=== PATIENT | female | born 1975 | race Caucasian/White ===

== ENCOUNTER → 2018-05-02 | Outpatient (CLI) | payer OTHER ==
[~2018-05-02] MED LIST: CONTRAST GIVEN. MC
[2018-05-02] MEDS: IOHEXOL 300 MG/ML 100ML VIAL. IV (15:15)
== END | disposition home or self-care (01) ==
LOC: CT 14:51
DX: R07.9 Chest pain, unspecified (principal); Z86.711 Personal history of pulmonary embolism
CPT/HCPCS: 71275; Q9967

== ENCOUNTER → 2018-09-19 | Outpatient (CLI) | payer OTHER ==
[2016-09-23 22:07] VITALS: BP 124/80
[~2018-09-19] MED LIST changes: +ACET325T9 PO; +BUSP5TAB PO; +CETI10TA22 PO; +CHOL2000 PO; -CONTRAST GIVEN. MC; +FAMO40TA4 PO; +OXYC-323 PO; +SERT100T8 PO; +SUCR1ORA5 PO; +WARF-31 PO; +WARF10TA45 PO
--- NOTE | 2018-09-19 09:22 | RAD ---
ABDOMEN LTD History: Right upper quadrant pain Comparison: None. Findings: Multiple sonographic images of the abdomen are submitted. There is suboptimal visualization of pancreas due to bowel gas, no obvious abnormality in this region. Abdominal aortic aorta is also poorly visualized due to bowel gas, not convincingly dilated up to about 1.9 cm. There is segmental visualization of the inferior vena cava. There is mild coarsening of the echotexture of the liver. Right lobe of the liver measured 16.2 cm longitudinal. Common bile duct is within normal limits at 0.3 cm. There is echogenic shadowing focus in the gallbladder lumen near the gallbladder neck, no change in position with patient repositioning. There is no demonstrable pericholecystic fluid or gallbladder wall thickening. Right kidney measured 10.5 x 4 x 5.1 cm, no hydronephrosis. Impression: 1. There is a gallstone near the gallbladder neck, no change in position with patient repositioning. 2. There may be mild hepatic steatosis. Electronically signed by: Geremias Flores MD (09/19/2018 9:18 AM) [email or web address]
== END | disposition home or self-care (01) ==
LOC: US 08:03
PROVIDERS: ATTEND Nurse Practitioner Family
DX: K80.80 Other cholelithiasis without obstruction (principal)
CPT/HCPCS: 76705

== ENCOUNTER 2018-09-27 06:51 | Day surgery (SDC) | payer OTHER ==
[~2018-09-27] VITALS: Ht 157.5 cm; Wt 86.0 kg
[~2018-09-27 06:51] MED LIST changes: +BUPIVAC MPF-EPI 0.5%-1:200000 30 ML VIAL. ONE; +IOHEXOL 300 MG/ML 100ML VIAL. ONE; -OXYC-323 PO; +SURGICEL HEMOSTAT 4X8 EACH. ONE
[2018-09-27] MEDS ORDERED: fentaNYL PF VIAL 100 MCG/2 ML VIAL IV PRN (07:00)
[2018-09-27] MEDS ORDERED: PROCHLORPERAZINE 10 MG/2 ML VIAL. IV PRN (07:00)
[2018-09-27] MEDS ORDERED: MORPHINE SULFATE 2 MG/ML VIAL. IV PRN (07:00)
[2018-09-27] MEDS ORDERED: HYDROmorphone 2 MG/ML VIAL IV PRN (07:00)
[2018-09-27] MEDS ORDERED: ONDANSETRON PF 4 MG/2 ML VIAL. IV PRN (07:00)
[2018-09-27] MEDS ORDERED: LIDOCAINE 1% PF 2 ML VIAL. ID PRN (07:00)
[2018-09-27] MEDS ORDERED: IV RINGERS,LACTATED 1000ML 1,000 ML IV SCH (07:00)
[2018-09-27] MEDS ORDERED: NEOSTIGMINE METHYLSULFATE 5 MG/5 ML SYRINGE. ONE (08:01)
[2018-09-27] MEDS ORDERED: fentaNYL PF VIAL 100 MCG/2 ML VIAL ONE ×4 (08:01→10:50)
[2018-09-27] MEDS ORDERED: GLYCOPYRROLATE 1 MG/5 ML VIAL. ONE (08:02)
[2018-09-27] MEDS ORDERED: ONDANSETRON PF 4 MG/2 ML VIAL. ONE (08:02)
[2018-09-27] MEDS ORDERED: PROPOFOL 20 ML IV ONE (08:02)
[2018-09-27] MEDS ORDERED: DEXAMETHASONE SOD PHOS 20 MG/5 ML VIAL. ONE (08:02)
[2018-09-27] MEDS ORDERED: MIDAZOLAM HCL/PF 2 MG/2 ML VIAL. ONE (08:02)
[2018-09-27] MEDS ORDERED: KETOROLAC 30 MG/ML INJ FOR OR. INJ ONE (08:02)
[2018-09-27] MEDS ORDERED: ROCURONIUM 50 MG/5 ML VIAL. ONE (08:03)
[2018-09-27 08:23] LABS: PROTHROMBIN TIME PATIENT 22.2 SEC (11.7-14.0)
[2018-09-27 08:33] LABS: U PREG PATIENT NEGATIVE (NEG)
[2018-09-27] MEDS ORDERED: BUPIVAC MPF-EPI 0.5%-1:200000 30 ML VIAL. INJ ONE (09:25)
--- NOTE | 2018-09-27 09:57 | PDOC4 ---
Operative Note Operative Note Date: 09/27/2018 Preoperative diagnosis: Chronic cholecystitis Postoperative diagnosis: Same Procedure: Laparoscopic cholecystectomy Surgeon: Uche Specimen: Gallbladder Dictation: Patient is a 42-year-old female who's had right upper quadrant abdominal pain ultrasound showing small gallstones seizure of laparoscopic cholecystectomy was explained to the patient detail was benefits were also discussed including bleeding infection injury to intra-abdominal contents possibly necessitating further or open operations alternatives to this procedure also discussed with patient seemed understanding gave both verbal and written consent had procedure performed. Patient was taken to the operating room placed in supine position general anesthesia was initiated once patient was asleep and intubated her abdomen was prepped and draped usual sterile fashion using ChloraPrep and area just below the umbilicus injected quarter percent Marcaine with epinephrine incisions made lead blade scalpel varies needle was placed within the abdomen creating pneumoperitoneum once this was complete a 11 mm port was placed and a 5 mm camera was placed within the abdomen abdomen was inspected no other abnormalities were noted. A 5 mm port was placed in the epigastrium and 2 more 5 mm ports were placed in the right upper quadrant the dome of the gallbladder's grasped retracted cephalad the infundibulum of the gallbladder's grasped tract laterally exposing the triangle adherent tissues the triangle are taken down exposing the cystic duct and cystic artery both were doubly clipped and transected the gallbladder was taken off the liver with hook electrocautery placed within an Endo Catch bag and removed from the umbilicus right upper quadrant was irrigated and suctioned dry hemostasis deemed to be appropriate and the pneumoperitoneum was reduced all ports removed the fascial defect at the umbilicus closed [id number] 0 Vicryl suture and the skin was approximated all port sites 4 septic Monocryl Mastisol Steri-Strips and island dressings were applied. Patient was waken expanded in the operating room taken recovery in stable condition all sponge instrument needle counts listed as correct estimate blood loss 5 mL BROOKE BRIDGES MD Sep 27, 2018 9:57 am
--- NOTE | 2018-09-27 09:58 | DISCH ---
DISCHARGE INSTRUCTIONS Condition on Discharge Condition on Discharge: Stable Activity After Discharge Activity Instructions for Disc: Avoid exertion Other activity instructions: no lifting more than 20 pounds for 2 weeks Driving Instructions after Dis: Do not drive today Diet after Discharge Diet after Discharge: Low Fat Wound Incision Care Wound/Incision Care: Other, see below Other wound/incision instructi: May shower in 24 hours Contacting the after DC Call your doctor for: If your condition worsens Follow-Up Follow up with: Dr. Bridges in 2 weeks BROOKE BRIDGES MD Sep 27, 2018 9:58 am
[2018-09-27] MEDS ORDERED: OXYC-323 PO (10:08)
[2018-09-27] MEDS ORDERED: PROCHLORPERAZINE 10 MG/2 ML VIAL. ONE (10:09)
[2018-09-27] MEDS: fentaNYL PF VIAL 100 MCG/2 ML VIAL IV PRN ×3 (10:12→10:53)
[2018-09-27] MEDS ORDERED: oxyCODONE/APAP 5/325 1 TAB TABLET PO ONE ×2 (11:15)
[2018-09-27 11:45] VITALS: BP 118/70
--- NOTE | 2018-09-29 12:07 | PATHOLOGY ---
[facility] Accession Number: [id number] . 01 Material submitted: . GALLBLADDER . 01 Clinical history: . Cholelithiasis with calculus . 02 Diagnosis: "Gallbladder", cholecystectomy: - Chronic cholecystitis with cholesterolosis. - Adenomyoma. - Cholelithiasis. . (CLW:vjm;09/28/2018) [facility]/09/28/2018 . 02 Electronically signed: . Marisa Hung MD, Pathologist NPI- [id number] . 01 Gross description: . The specimen is received in formalin, labeled "Antonieta, Kamron, gallbladder", is a disrupted, collapsed gallbladder 7.7 x 1.8 x 1.4 cm with a glistening, story yellow serosa. The lumen is filled with scant yellow-green viscous bile admixed with a roughly oval, irregularly surfaced yellow-brown calculus measuring 1.0 x 0.7 x 0.7 cm. The mucosa is diffusely covered by yellow flecks. The wall is edematous and has an average thickness of 0.1 cm. Multiloculated fundal cyst is identified. No discrete mass is identified. Service [employer] tissue is submitted in A1. (SWS; 09/27/2018) [facility]S . 02 Pathologist provided ICD-10: K80.10, K82.4 . 02 CPT . 969211 Specimen Comment: A courtesy copy of this report has been sent to Specimen Comment: [phone], . Specimen Comment: Report sent to / DR DELGADO Specimen Comment: A duplicate report has been generated due to demographic updates. Performed at: [address], [place], [place] [id number] MD Florin Osman MD Phone: [phone] Performed at: [address] [id number] MD John Plaza MD Phone: [phone]
== END 2018-09-27 11:45 | disposition home or self-care (01) ==
LOC: SURG 06:51
PROVIDERS: ATTEND Surgery
DX: D13.5 Benign neoplasm of extrahepatic bile ducts (principal); K80.10 Calculus of gallbladder with chronic cholecystitis without obstruction; Z88.0 Allergy status to penicillin; Z79.899 Other long term (current) drug therapy; Z79.2 Long term (current) use of antibiotics; Z86.73 Personal history of transient ischemic attack (TIA), and cerebral infarction without residual deficits; Z98.51 Tubal ligation status; Z98.890 Other specified postprocedural states; Z82.3 Family history of stroke; Z83.6 Family history of other diseases of the respiratory system; Z87.891 Personal history of nicotine dependence; Z88.8 Allergy status to other drugs, medicaments and biological substances
CPT/HCPCS: 36415; 47562; 81025; 85610; 85730; 88304; A7015; J0780; J1100; J1956; J2250; J2405; J2704; J2710; J3010; J3490; J7030; J7120; J1885; Q9967

== ENCOUNTER → 2019-12-25 | Outpatient (CLI) | payer OTHER ==
[~2019-12-25] MED LIST changes: -BUPIVAC MPF-EPI 0.5%-1:200000 30 ML VIAL. ONE; -CETI10TA22 PO; +CETI10TA24 PO; -IOHEXOL 300 MG/ML 100ML VIAL. ONE; +OXYC1TAB15 PO; -SURGICEL HEMOSTAT 4X8 EACH. ONE
--- NOTE | 2019-12-25 13:45 | RAD ---
Examination: 1. Bilateral digital diagnostic mammogram. 2. Limited left breast ultrasound. INDICATION: 44-year-old woman due for mammographic screening presents with intermittent left breast pain for the past 2 weeks. COMPARISON: Bilateral diagnostic mammogram and limited left breast ultrasound of January 06, 2011 TECHNIQUE: Bilateral CC and MLO views were obtained with 2-D and 3-D technique and reviewed with computer-aided detection. Targeted ultrasound of the lateral left breast in the upper outer quadrant was also performed in the patient's reported area of concern. FINDINGS: Patient's breasts are heterogeneously dense. There is no developing mass, suspicious calcification or architectural distortion identified in either breast. No definite mammographic correlate to, or change in, the area of clinical concern. This happens to be the similar general area where the patient previously complained about focal tenderness although the reports on the previous examination mentioned patient had a palpable area of concern. She denies that at this visit. Targeted ultrasound of the area of focal tenderness at the left 2:00 position 3 cm from the nipple reveals a ridge of dense fibroglandular tissue with a few ectatic ducts but no dominant mass, architectural distortion or suspicious sonographic findings. IMPRESSION: Negative bilateral mammogram and targeted left breast ultrasound. No findings suspicious for malignancy. Recommend clinical management which may include biopsy if there are any clinically suspicious findings. In the absence of a clinically suspicious finding, screening mammography in one year is recommended. Discussed with patient. BI-RADS Category 1 Negative Patient entered into a reminder system with target due date for next mammogram.
== END | disposition home or self-care (01) ==
LOC: MAMMO 12:19
PROVIDERS: ATTEND Nurse Practitioner Family
DX: N60.42 Mammary duct ectasia of left breast (principal)
CPT/HCPCS: 76641; 77066; G0279; 77062

== ENCOUNTER → 2020-04-21 | Outpatient (CLI) | payer OTHER ==
[2020-04-21 14:07] LABS: PROTHROMBIN TIME PATIENT 26.3 SEC (11.7-14.0)
== END | disposition home or self-care (01) ==
LOC: LAB 13:35
PROVIDERS: ATTEND Nurse Practitioner Family
DX: D68.51 Activated protein C resistance (principal)
CPT/HCPCS: 36415; 85610

== ENCOUNTER → 2020-08-06 | Outpatient (CLI) | payer OTHER ==
[~2020-08-06] MED LIST changes: -CETI10TA24 PO; +CETI10TA74 PO
--- NOTE | 2020-08-06 13:21 | KCIC ---
EXAM: Lumbar spine, flexion and extension. HISTORY: Pain. COMPARISON: 09/09/2016 FINDINGS: Frontal, lateral, flexion and extension and coned sacral views of the lumbar spine are obtained. There is no listhesis. The vertebral bodies are normal in height. There is slight disc space narrowing at L5-S1. There is a right iliofemoral stent. There are cholecystomy clips. There is no abnormal motion between flexion and extension. IMPRESSION: No acute osseous finding. Electronically signed by: Gabriela Hawley MD (08/06/2020 1:19 PM) [id number]
== END | disposition home or self-care (01) ==
LOC: KCIC 11:20
PROVIDERS: ATTEND Family Medicine
DX: M48.07 Spinal stenosis, lumbosacral region (principal); R26.2 Difficulty in walking, not elsewhere classified
CPT/HCPCS: 72114

== ENCOUNTER → 2020-11-05 | Outpatient (CLI) | payer OTHER ==
[2020-11-05 13:33] LABS: PROTHROMBIN TIME PATIENT 15.7 SEC (11.7-14.0)
== END ==
LOC: LAB 12:41
PROVIDERS: ATTEND Nurse Practitioner Family
DX: Z79.01 Long term (current) use of anticoagulants (principal)
CPT/HCPCS: 36415; 85610

== ENCOUNTER → 2021-02-23 | Outpatient (CLI) | payer OTHER ==
[~2021-02-23] MED LIST changes: +IOHEXOL 240 MG/ML 50ML VIAL. PO ONE; +IOHEXOL 300 MG/ML 100ML VIAL. IV ONE; +SERT-268 PO; -SERT100T8 PO
--- NOTE | 2021-02-23 09:55 | KCIC ---
Exam Date: 02/23/2021 8:[address] ABDOMEN+PELVIS W Indication: Reason: RLQ pain 3 weeks. / Spl. Instructions: 100mL Omni 300 / History: Hx. cholecystect vini, 3 C-sections TECHNIQUE: CT examination of the abdomen and pelvis was performed following the administration of or al and nonionic intravenous contrast. One or more of the following dose reduction techniques were ut ilized: *Automated exposure control (AEC) *Adjustment of mA and/or kV according to patient size *Use of iterative reconstruction technique *CT scan done according to ALARA, or ALARA/IMAGE GENTLY FINDINGS: The visualized lung bases are clear. Status post cholecystectomy. The liver, spleen, pancreas, adrenal glands and kidneys are normal. Urinary bladder is normal in appearance. There is no bowel obstruction or inflammation. The appendix is normal. There is a small fat-containi ng umbilical hernia. There is a small fat-containing ventral hernia at the midline just superior to t he umbilicus. No significant atherosclerotic calcifications are seen. Right iliac venous stent is seen. No lymphade nopathy or ascites is seen. Osseous structures are intact. IMPRESSION: No evidence of acute intra-abdominal pathology. Electronically signed by: Sarabjit Vila MD (02/23/2021 9:52 AM) [id number]
== END ==
LOC: KCIC CT 07:54
PROVIDERS: ATTEND Family Medicine
DX: K42.0 Umbilical hernia with obstruction, without gangrene (principal); K43.6 Other and unspecified ventral hernia with obstruction, without gangrene; R10.31 Right lower quadrant pain
CPT/HCPCS: 74177; Q9966; Q9967

== ENCOUNTER → 2021-09-23 | Outpatient (CLI) | payer OTHER ==
[~2021-09-23] MED LIST changes: -IOHEXOL 240 MG/ML 50ML VIAL. PO ONE; -IOHEXOL 300 MG/ML 100ML VIAL. IV ONE
[2021-09-23 15:35] LABS: PROTHROMBIN TIME PATIENT 24.5 SEC (11.7-14.0)
== END ==
LOC: LAB 14:58
PROVIDERS: ATTEND Family Medicine
DX: Z79.01 Long term (current) use of anticoagulants (principal)
CPT/HCPCS: 36415; 85610

== ENCOUNTER → 2021-10-20 | Outpatient (CLI) | payer OTHER ==
--- NOTE | 2021-10-20 11:26 | RAD ---
INDICATION: Reason: hematuria / Spl. Instructions: / History: COMPARISON: February 23, 2021 TECHNIQUE: Axial CT images were obtained through the abdomen and pelvis without intravenous contrast. One or more of the following individualized dose reduction techniques were utilized for this examinat ion: 1. Automated exposure control; 2. Adjustment of the mA and/or kV according to patient size; 3 . Use of iterative reconstruction technique. FINDINGS: Vascular: Stent within the right common and external iliac vein. Cannot assess for patency on noncont rast exam. Hepatobiliary: Postcholecystectomy changes. Pancreas: Limited assessment without contrast. Spleen: Spleen unremarkable. Renal/Bladder: No hydronephrosis. Urinary bladder has minimal urine within it but the wall does appea r prominent in thickness. Gastrointestinal: Small fat-containing umbilical hernia. Moderate stool within the colon. The appendi x does not appear dilated. No dilated loops of bowel to suggest obstruction. Degenerative changes throughout the spine There is again some haziness to a portion of the mesenteric fat with prominent lymph nodes in the are a. IMPRESSION: * Urinary bladder is partially distended with prominence the wall and mild haziness to the adjacent fat. Would correlate with symptoms since causes such as cystitis could have this appearance. * Moderate amount of stool within the colon. * There is some haziness to the mesenteric fat with prominent lymph nodes in the region. Nonspecific in nature but causes such as mesenteric panniculitis are within the differential. Electronically signed by: Ralph Tello MD (10/20/2021 11:23 AM) [id number]
== END ==
LOC: CT 10:15
PROVIDERS: ATTEND Nurse Practitioner Family
DX: N32.89 Other specified disorders of bladder (principal); I89.8 Other specified noninfective disorders of lymphatic vessels and lymph nodes; K59.00 Constipation, unspecified; K42.9 Umbilical hernia without obstruction or gangrene; M47.819 Spondylosis without myelopathy or radiculopathy, site unspecified; Z90.49 Acquired absence of other specified parts of digestive tract
CPT/HCPCS: 74176

== ENCOUNTER → 2021-12-17 | Outpatient (CLI) | payer OTHER | LOC: LAB 09:07 | PROVIDERS: ATTEND Internal Medicine Pulmonary Disease | DX: R50.9 Fever, unspecified (principal); R51.9 Headache, unspecified; J02.9 Acute pharyngitis, unspecified; R09.81 Nasal congestion; Z20.822 Contact with and (suspected) exposure to COVID-19 | CPT/HCPCS: U0003; U0005 ==